=== PATIENT | male | born 1980 | race Caucasian/White ===

== ENCOUNTER 2017-04-29 03:37 | Emergency (ER) | payer SELFPAY ==
[~2017-04-29] VITALS: Ht 193 cm; Wt 133.8 kg
[~2017-04-29 03:37] MED LIST: CYCL10TA2 PO; NAPR500T4 PO
--- NOTE | 2017-04-29 04:14 | PHYS DOC ---
Adult General Chief Complaint Chief Complaint: FLANK PAIN HPI HPI Patient is a 36 year old male who presents with complaint of left-sided flank pain. Patient states that he has been having pain for the past 2-3 days. Patient states that he has history kidney stones but has not had any trouble for the past several years. Patient started getting colicky left-sided flank pain similar to previous history of kidney stones. Patient also noticed blood in his urine upon onset but stated that the blood has cleared up. His pain however has increased over the past 24 hours. Patient was initially seen on at a clinic and was prescribed Flomax and [place]. Patient states this is offered mild relief of symptoms. Patient states initially when he arrived in the emergency department his pain was 9 out of 10. Patient states that currently it as 8 out of 10 on my interview. Patient denies any associated fevers. Patient has had associated vomiting earlier today. Review of Systems Review of Systems Constitutional: Denies fever or chills [] Eyes: Denies change in visual acuity, redness, or eye pain [] HENT: Denies nasal congestion or sore throat [] Respiratory: Denies cough or shortness of breath [] Cardiovascular: Denies chest pain or edema[] GI: Nausea vomiting, denies bloody stools or diarrhea [] : Hematuria[] Musculoskeletal: Left flank pain[] Integument: Denies rash or skin lesions [] Neurologic: Denies headache, focal weakness or sensory changes [] Current Medications Current Medications Current Medications Medications (Trade) Dose Ordered Sig/Ari Start Time Stop Time Status Last Admin Dose Admin Hydromorphone HCl (Dilaudid) 1 mg PRN Q15MIN PRN 04/29/17 04:15 04/30/17 04:14 04/29/17 05:29 1 MG Ketorolac Tromethamine (Toradol) 30 mg 1X ONCE 04/29/17 04:15 04/29/17 04:16 DC 04/29/17 04:17 30 MG Ondansetron HCl (Zofran) 4 mg 1X ONCE 04/29/17 04:15 04/29/17 04:16 DC 04/29/17 04:16 4 MG Sodium Chloride 1,000 ml @ 1,000 mls/hr Q1H 04/29/17 04:15 04/29/17 05:14 DC 04/29/17 04:16 1,000 MLS/HR Allergies Allergies Allergies Coded Allergies Type Severity Reaction Last Updated Verified No Known Drug Allergies 02/08/15 No Physical Exam Physical Exam Constitutional: Alert, afebrile, appears in moderate discomfort. [] HENT: Normocephalic, atraumatic, bilateral external ears normal, oropharynx moist, no oral exudates, nose normal. [] Eyes: PERRLA, EOMI, conjunctiva normal, no discharge. [] Neck: Normal range of motion, no tenderness, supple, no stridor. [] Cardiovascular:Heart rate regular rhythm, no murmur [] Lungs & Thorax: Bilateral breath sounds clear to auscultation [] Abdomen: Bowel sounds normal, soft, no tenderness, no masses, no pulsatile masses. [] Skin: Warm, dry, no erythema, no rash. [] Back: No tenderness, no CVA tenderness. [] Extremities: No tenderness, no cyanosis, no clubbing, ROM intact, no edema. [] Neurologic: Alert and oriented X 3, normal motor function, normal sensory function, no focal deficits noted. [] Current Patient Data Vital Signs Vital Signs Date Time Temp Pulse Resp B/P (MAP) Pulse Ox O2 Delivery O2 Flow Rate FiO2 04/29/17 04:00 74 10 159/93 (115) 96 Room Air 04/29/17 03:50 98.8 98.8 Lab Values Laboratory Tests Test 04/29/17 03:53 04/29/17 04:25 White Blood Count 11.6 x10^3/uL (4.0-11.0) H Red Blood Count 5.09 x10^6/uL (4.30-5.70) Hemoglobin 15.4 g/dL (13.0-17.5) Hematocrit 46.1 % (39.0-53.0) Mean Corpuscular Volume 91 fL (79-100) Mean Corpuscular Hemoglobin 30 pg (25-35) Mean Corpuscular Hemoglobin Concent 33 g/dL (31-37) Red Cell Distribution Width 13.3 % (11.5-14.5) Platelet Count 183 x10^3/uL (140-400) Neutrophils (%) (Auto) 78 % (31-73) H Lymphocytes (%) (Auto) 12 % (24-48) L Monocytes (%) (Auto) 9 % (0-9) Eosinophils (%) (Auto) 1 % (0-3) Basophils (%) (Auto) 0 % (0-3) Neutrophils # (Auto) 9.1 x10^3uL (1.8-7.7) H Lymphocytes # (Auto) 1.4 x10^3/uL (1.0-4.8) Monocytes # (Auto) 1.0 x10^3/uL (0.0-1.1) Eosinophils # (Auto) 0.1 x10^3/uL (0.0-0.7) Basophils # (Auto) 0.0 x10^3/uL (0.0-0.2) Sodium Level 140 mmol/L (136-145) Potassium Level 3.4 mmol/L (3.5-5.1) L Chloride Level 104 mmol/L (98-107) Carbon Dioxide Level 26 mmol/L (21-32) Anion Gap 10 (6-14) Blood Urea Nitrogen 13 mg/dL (8-26) Creatinine 1.6 mg/dL (0.7-1.3) H Estimated GFR (Cockcroft-Gault) 48.9 BUN/Creatinine Ratio 8 (6-20) Glucose Level 106 mg/dL (70-99) H Calcium Level 9.0 mg/dL (8.5-10.1) Total Bilirubin 1.2 mg/dL (0.2-1.0) H Aspartate Amino Transferase (AST) 22 U/L (15-37) Alanine Aminotransferase (ALT) 32 U/L (16-63) Alkaline Phosphatase 52 U/L (46-116) Total Protein 7.3 g/dL (6.4-8.2) Albumin 4.1 g/dL (3.4-5.0) Albumin/Globulin Ratio 1.3 (1.0-1.7) Lipase 127 U/L (73-393) Urine Collection Type Unknown Urine Color Yellow Urine Clarity Clear Urine pH 7.0 Urine Specific [place] 1.025 Urine Protein Negative mg/dL (NEG-TRACE) Urine Glucose (UA) Negative mg/dL (NEG) Urine Ketones (Stick) Negative mg/dL (NEG) Urine Blood Large (NEG) Urine Nitrite Negative (NEG) Urine Bilirubin Negative (NEG) Urine Urobilinogen Dipstick 0.2 mg/dL (0.2 mg/dL) Urine Leukocyte Esterase Negative (NEG) Urine RBC 20-40 /HPF (0-2) Urine WBC 0 /HPF (0-4) Urine Squamous Epithelial Cells Occ /LPF Urine Bacteria 0 /HPF (0-FEW) Urine Mucus Mod /LPF Laboratory Tests 04/29/17 03:53 Laboratory Tests 04/29/17 03:53 EKG EKG Not performed[] Radiology/Procedures Radiology/Procedures [facility] [address] [place] [address] IMAGING REPORT Signed PATIENT: KO CHANCE ACCOUNT: [id number] : 1980 LOCATION: ER AGE: 36 SEX: M EXAM STATUS: REG ER ORD. PHYSICIAN: NEVIN ALFRED MD REASON: left flank pain, history kidney stones PROCEDURE: CT ABDOMEN PELVIS WO CONTRAST INDICATION: left flank pain COMPARISON: None. TECHNIQUE: Axial CT images were obtained through the abdomen and pelvis without intravenous contrast. Limited assessment of solid organ structures and vasculature secondary to lack of intravenous contrast. One or more of the following individualized dose reduction techniques were utilized for this examination: 1. Automated exposure control; 2. Adjustment of the mA and/or kV according to patient size; 3. Use of iterative reconstruction technique. FINDINGS: Linear opacity left lung base. Left greater than right small fat-containing inguinal hernia. Abdominal aorta is not grossly aneurysmal. No peripancreatic edema. Spleen unremarkable. Right-sided hydronephrosis and perinephric edema with 10 mm left proximal ureter stone. There are additional nonobstructive left renal stones. No right-sided hydronephrosis. Urinary bladder is largely decompressed. No definite periappendiceal inflammation. Suspected small fat-containing umbilical hernia. No dilated loops of bowel to suggest obstruction. Degenerative changes spine. This contributes to multilevel central canal and neural foraminal stenosis including at L4-5, L5-S1 and L1-2. IMPRESSION: 1. Left hydronephrosis with perinephric edema and left proximal ureter stone. 2. There are additional nonobstructive left renal stones. 3. Linear opacities left lung base. Given the morphology most likely causes atelectasis. Electronically signed by: John Paul Azevedo MD (04/29/2017 5:18 AM) [facility] DICTATED and SIGNED BY: JOHN PAUL AZEVEDO MD DATE: 04/29/17 0508 CC: NEVIN ALFRED MD; NO PCP ~ [] Course & Med Decision Making Course & Med Decision Making Pertinent Labs and Imaging studies reviewed. (See chart for details) Patient was given IV Dilaudid, Toradol, and Zofran in the emergency department. Patient's CT shows evidence of a 10 mm proximal obstructing ureteral stone. Patient also has an elevated creatinine with no prior history of kidney disease. This may be due to obstructive uropathy. The patient states that his pain has improved but is still present at this time. Due to the large size of the kidney stone, its location, failure of outpatient treatment, and evidence of obstruction, the patient will need urology consult and expected cystoscopy for treatment of the patient's ureteral stone. [facility] does not have urology on consult at this time. [facility] was initially contacted but had no bed availability. I contacted [facility] transfer line and spoke with Dr. Traore who accepted care patient for transfer. Patient will be transferred by ground EMS. Informed patient of plan of care and he was in agreement at time of disposition. Dragon Disclaimer Dragon Disclaimer This electronic medical record was generated, in whole or in part, using a voice recognition dictation system. Departure Departure Impression: Primary Impression: Hydronephrosis with renal and ureteral calculous obstruction Additional Impression: Obstructive uropathy Disposition: 02 TRANSFER [facility] Condition: STABLE Referrals: NON,STAFF (PCP) Problem Qualifiers NEVIN ALFRED MD Apr 29, 2017 04:14
[2017-04-29] MEDS ORDERED: ONDANSETRON PF 4 MG/2 ML VIAL. IV ONE (04:15)
[2017-04-29] MEDS ORDERED: KETOROLAC 30 MG/ML INJ. IV ONE (04:15)
[2017-04-29] MEDS ORDERED: IV NORMAL SALINE 1000ML BAG 1,000 ML IV SCH (04:15)
[2017-04-29 04:16] LABS: BASO % 0 % (0-3); EOS % 1 % (0-3); HEMATOCRIT 46.1 % (39.0-53.0); HEMOGLOBIN 15.4 g/dL (13.0-17.5); LYMPH # 1.4 x10^3/uL (1.0-4.8); LYMPH % 12 % (24-48); MEAN CORPUSCULAR HEMOGLOBIN 30 pg (25-35); MEAN CORPUSCULAR HGB CONC 33 g/dL (31-37); MEAN CORPUSCULAR VOLUME 91 fL (79-100); MONO % 9 % (0-9); NEUT % 78 % (31-73); PLATELET COUNT 183 x10^3/uL (140-400); RED BLOOD COUNT 5.09 x10^6/uL (4.30-5.70); RED CELL DISTRIBUTION WIDTH 13.3 % (11.5-14.5); WHITE BLOOD COUNT 11.6 x10^3/uL (4.0-11.0)
[2017-04-29] MEDS: HYDROmorphone 2 MG/ML VIAL IV/SQ PRN ×2 (04:16→05:29)
[2017-04-29 04:32] LABS: CREATININE 1.6 mg/dL (0.7-1.3); GFR 48.9; POTASSIUM 3.4 mmol/L (3.5-5.1)
[2017-04-29 04:37] LABS: BILIRUBIN,URINE NEGATIVE (NEG); GLUCOSE,URINE NEGATIVE (NEG); NITRITE,URINE NEGATIVE (NEG); PROTEIN,URINE NEGATIVE (NEG-TRACE); UROBILINOGEN,URINE 0.2 mg/dL (0.2 mg/dL)
[2017-04-29 04:38] LABS: ALBUMIN 4.1 g/dL (3.4-5.0); ALBUMIN/GLOBULIN RATIO 1.3 (1.0-1.7); TOTAL BILIRUBIN 1.2 mg/dL (0.2-1.0); TOTAL PROTEIN 7.3 g/dL (6.4-8.2)
[2017-04-29 05:03] LABS: BACTERIA,URINE 0 /HPF (0-FEW); RBC,URINE 20-40 /HPF (0-2); SQUAMOUS EPITHELIAL CELL,UR OCC /LPF; WBC,URINE 0 /HPF (0-4)
--- NOTE | 2017-04-29 05:21 | RAD ---
INDICATION: left flank pain COMPARISON: None. TECHNIQUE: Axial CT images were obtained through the abdomen and pelvis without intravenous contrast. Limited assessment of solid organ structures and vasculature secondary to lack of intravenous contrast. One or more of the following individualized dose reduction techniques were utilized for this examination: 1. Automated exposure control; 2. Adjustment of the mA and/or kV according to patient size; 3. Use of iterative reconstruction technique. FINDINGS: Linear opacity left lung base. Left greater than right small fat-containing inguinal hernia. Abdominal aorta is not grossly aneurysmal. No peripancreatic edema. Spleen unremarkable. Right-sided hydronephrosis and perinephric edema with 10 mm left proximal ureter stone. There are additional nonobstructive left renal stones. No right-sided hydronephrosis. Urinary bladder is largely decompressed. No definite periappendiceal inflammation. Suspected small fat-containing umbilical hernia. No dilated loops of bowel to suggest obstruction. Degenerative changes spine. This contributes to multilevel central canal and neural foraminal stenosis including at L4-5, L5-S1 and L1-2. IMPRESSION: 1. Left hydronephrosis with perinephric edema and left proximal ureter stone. 2. There are additional nonobstructive left renal stones. 3. Linear opacities left lung base. Given the morphology most likely causes atelectasis. Electronically signed by: Krishan Guy MD (04/29/2017 5:18 AM) [facility]
[2017-04-29 07:00] VITALS: BP 170/81
== END 2017-04-29 07:23 | disposition short-term general hospital (02) ==
LOC: ER 03:37
DX: N13.2 Hydronephrosis with renal and ureteral calculous obstruction (principal); Z87.442 Personal history of urinary calculi
CPT/HCPCS: 36415; 74176; 80053; 81001; 83690; 85025; 96361; 96374; 96375; 96376; 99285; J1170; J1885; J2405; J7030